=== PATIENT | female | born 1970 | race Caucasian/White ===

== ENCOUNTER 2017-02-03 10:53 | Inpatient (IN) ==
--- NOTE | 2017-02-03 11:30 | Emergency Department Note ---
Disposition Clinical Impression: Suicide ideation Disposition: Admitted As Inpatient Condition: Serious Referrals: Keon Graff MD [Partnered Physician] - Forms: ED Satisfaction Letter Time of Disposition: 15:06 Psych HPI - General Chief Complaint: ED Psychiatric Symptoms Stated Complaint: SI Time Seen by Provider: 02/03/17 11:18 Source: patient Nursing Notes Reviewed: Yes Vital Signs Reviewed: Yes - History of Present Illness HPI Narrative: 46-year-old female complains of suicidal ideation 1 day ago that is severe. Patient states in scale 1-55 and most likely she will attempt she states she is out of 5. Patient states she lost her son 2 years ago since then she has had severe depression. Patient has no coping mechanisms and has loss of energy severe guilt not sleeping well as well. - Related Data Allergies Allergy/AdvReac Type Severity Reaction Status Date / Time Amoxicillin [From Augmentin] Allergy Rash Verified 02/03/17 11:06 clavulanic acid Allergy Rash Verified 02/03/17 11:06 [From Augmentin] Influenza Virus Vaccines Allergy Anaphylaxis Verified 02/03/17 11:06 All systems ED: reviewed and negative except as stated. Review of Systems: As Per HPI Constitutional: Reports: chills. Denies: fever Eyes: Denies: vision change ENT ED: Denies: congestion Cardiovascular: Denies: chest pain, palpitations Respiratory: Denies: cough, dyspnea, wheezes Gastrointestinal: Denies: abdominal pain, nausea, vomiting, diarrhea Genitourinary: Denies: urgency, dysuria, frequency Musculoskeletal: Denies: back pain, neck pain Integumentary: Denies: rash, abrasion Neurological: Reports: headache (Migraines no change from normal) Psychiatric: Reports: anxiety (Severe anxiety), depression, suicidal thoughts Endocrine: Reports: fatigue Past Medical History - Past Medical History Attestation: Yes The following information was validated with the patient. 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: Reports: no PROCESS ENGINEERING INTERN history - Social History Smoking Status: Never smoker Smokeless Tobacco Status: No Alcohol use: Reports: none Drug use: Reports: none Physical Exam Vital Signs Temperature 97.7 F 02/03/17 11:01 Pulse Rate 115 02/03/17 11:01 Respiratory Rate 16 02/03/17 11:01 Blood Pressure 140/95 02/03/17 11:01 O2 Sat by Pulse Oximetry 99 02/03/17 11:01 Temperature 97.7 F 02/03/17 11:01 Pulse Rate 115 02/03/17 11:01 Respiratory Rate 16 02/03/17 11:01 Blood Pressure 140/95 02/03/17 11:01 O2 Sat by Pulse Oximetry 99 02/03/17 11:01 Oxygen Delivery Oxygen Delivery Room Air 46-year-old female who is alert and oriented 3 and in no acute distress. Patient looks nontoxic and well-appearing. Vital signs show patient's tachycardic at 1 15 bpm, and hypertensive 140/95 - General Limitations: no limitations General appearance: alert, in no apparent distress Course Vital Signs Temperature 97.7 F 02/03/17 11:01 Pulse Rate 115 02/03/17 11:01 Respiratory Rate 16 02/03/17 11:01 Blood Pressure 140/95 02/03/17 11:01 O2 Sat by Pulse Oximetry 99 02/03/17 11:01 Temperature 97.7 F 02/03/17 11:01 Pulse Rate 95 02/03/17 13:17 Respiratory Rate 20 02/03/17 13:17 Blood Pressure 130/89 02/03/17 13:17 O2 Sat by Pulse Oximetry 97 02/03/17 13:17 Oxygen Delivery Oxygen Delivery Room Air Psych - MDM Narrative Medical decision making narrative: Patient presents with suicide ideation and severe depression. Patient states skilled. Patient states she has a clear plan to take any medications and overdose at home. Patient's labs show no adamant about this and is medically cleared for evaluation by 1A. nurses made a call at 1255 hrs. Patient was evaluated by [facility]. awaiting decision. 1505 hrs.: Phone call from psychiatric services stated Dr. Aceves psychiatry has admitted in-patient evaluation. - Lab Data Lab results reviewed: Yes I reviewed the patient's lab results. Lab results narrative: Short CBC 02/03/17 Range/Units 11:39 WBC 7.5 (4.3-11.1) K/mcL Hgb 12.1 (11.5-15.4) g/dL Hct 36.4 (35.3-44.9) % Plt Count 313 (140-400) K/mcL Neutrophils # 4.9 (1.6-8.9) K/mcL BMP 02/03/17 Range/Units 11:39 Sodium 137 (136-145) mEq/L Potassium 3.7 (3.5-4.5) mEq/L Chloride 103 (98-109) mEq/L Carbon Dioxide 27 (19-29) mEq/L BUN 10 (7-20) mg/dL Creatinine 0.85 (0.57-1.11) mg/dL Glucose 91 (70-99) mg/dL Calcium 9.6 (8.6-10.8) mg/dL Liver Function 02/03/17 Range/Units 11:39 Total Bilirubin 0.3 (0.2-1.2) mg/dL Direct Bilirubin 0.1 (0.0-0.5) mg/dL AST 14 (5-34) Units/L ALT 12 (0-55) Units/L Alkaline Phosphatase 81 (38-126) Units/L Albumin 3.4 L (3.5-5.0) g/dL Urine 02/03/17 Range/Units 11:53 Urine Color Yellow (Yellow) Urine Clarity Clear (Clear) Urine pH 6.5 (5.0-8.0) pH Units Ur Specific [place] 1.010 (1.010-1.025) Urine Protein Negative (Neg-Trace) mg/dL Urine Glucose (UA) Normal (Normal) mg/dL Result diagrams: 02/03/17 11:39 02/03/17 11:39 Lab Results 02/03/17 02/03/17 02/03/17 Range/Units 11:01 11:01 11:39 WBC 7.5 (4.3-11.1) K/mcL RBC 4.12 (3.82-4.97) M/mcL Hgb 12.1 (11.5-15.4) g/dL Hct 36.4 (35.3-44.9) % MCV 88.3 (83.0-100.0) fL MCH 29.4 (28.0-33.3) pg MCHC 33.2 (31.6-35.5) g/dL RDW 13.6 (11.5-14.5) % Plt Count 313 (140-400) K/mcL MPV 8.6 L (9.4-12.4) fL Immature Gran % 0.1 (0-4) % Seg Neutrophils % 65.5 % Lymphocytes % 24.6 % Monocytes % 8.3 % Eosinophils % 1.1 % Basophils % 0.4 % Neutrophils # 4.9 (1.6-8.9) K/mcL Lymphocytes # 1.8 (0.6-4.6) K/mcL Monocytes # 0.6 (0.0-1.3) K/mcL Eosinophils # 0.1 (0.0-0.6) K/mcL Basophils # 0.0 (0.0-0.2) K/mcL Sodium (136-145) mEq/L Potassium (3.5-4.5) mEq/L Chloride (98-109) mEq/L Carbon Dioxide (19-29) mEq/L BUN (7-20) mg/dL Creatinine (0.57-1.11) mg/dL Est GFR ( Amer) (> 60) Est GFR (Non-Af Amer) (> 60) BUN/Creatinine Ratio (6-26) Glucose (70-99) mg/dL Calculated Osmolality (280-300) Calcium (8.6-10.8) mg/dL Total Bilirubin (0.2-1.2) mg/dL Direct Bilirubin (0.0-0.5) mg/dL Indirect Bilirubin (0.0-1.2) mg/dL AST (5-34) Units/L ALT (0-55) Units/L Alkaline Phosphatase (38-126) Units/L Serum Total Protein (6.0-8.3) g/dL Albumin (3.5-5.0) g/dL Globulin (2.4-3.5) g/dL Albumin/Globulin Ratio (1.1-2.2) TSH (0.350-4.840) mcIU/mL Urine Color (Yellow) Urine Clarity (Clear) Urine pH (5.0-8.0) pH Units Ur Specific [place] (1.010-1.025) Urine Protein (Neg-Trace) mg/dL Urine Glucose (UA) (Normal) mg/dL Urine Ketones (Negative) mg/dL Urine Blood (Negative) Urine Nitrite (Negative) Urine Bilirubin (Negative) Urine Urobilinogen (Normal) mg/dL Ur Leukocyte Esterase (Negative) Urine Microscopic RBC (0-3) per hpf Urine Microscopic WBC (0-3) per hpf Ur Squamous Epith Cells (None-Few) per lpf Urine Bacteria (None-Few) per hpf Hyaline Casts (None-Few) per lpf Urine Test Negative (Negative) Salicylates (15.0-30.0) mg/dL Urine Opiates Screen Negative (Evscfp=027) ng/mL Acetaminophen (10-30) mcg/mL Ur Barbiturates Screen Negative (Qfhsqe=723) ng/mL Ur Phencyclidine Scrn Negative (Cutoff=25) ng/mL Ur Amphetamines Screen Negative (Iiupmp=6966) ng/mL U Benzodiazepines Scrn Negative (Idbbyv=701) ng/mL Urine Cocaine Screen Negative (Cutoff= 300) ng/mL U Marijuana (THC) Screen Negative (Cutoff = 50) ng/mL Ethyl Alcohol (0-10) mg/dL 02/03/17 02/03/17 Range/Units 11:39 11:53 WBC (4.3-11.1) K/mcL RBC (3.82-4.97) M/mcL Hgb (11.5-15.4) g/dL Hct (35.3-44.9) % MCV (83.0-100.0) fL MCH (28.0-33.3) pg MCHC (31.6-35.5) g/dL RDW (11.5-14.5) % Plt Count (140-400) K/mcL MPV (9.4-12.4) fL Immature Gran % (0-4) % Seg Neutrophils % % Lymphocytes % % Monocytes % % Eosinophils % % Basophils % % Neutrophils # (1.6-8.9) K/mcL Lymphocytes # (0.6-4.6) K/mcL Monocytes # (0.0-1.3) K/mcL Eosinophils # (0.0-0.6) K/mcL Basophils # (0.0-0.2) K/mcL Sodium 137 (136-145) mEq/L Potassium 3.7 (3.5-4.5) mEq/L Chloride 103 (98-109) mEq/L Carbon Dioxide 27 (19-29) mEq/L BUN 10 (7-20) mg/dL Creatinine 0.85 (0.57-1.11) mg/dL Est GFR ( Amer) > 60 (> 60) Est GFR (Non-Af Amer) > 60 (> 60) BUN/Creatinine Ratio 12 (6-26) Glucose 91 (70-99) mg/dL Calculated Osmolality 283 (280-300) Calcium 9.6 (8.6-10.8) mg/dL Total Bilirubin 0.3 (0.2-1.2) mg/dL Direct Bilirubin 0.1 (0.0-0.5) mg/dL Indirect Bilirubin 0.2 (0.0-1.2) mg/dL AST 14 (5-34) Units/L ALT 12 (0-55) Units/L Alkaline Phosphatase 81 (38-126) Units/L Serum Total Protein 8.1 (6.0-8.3) g/dL Albumin 3.4 L (3.5-5.0) g/dL Globulin 4.7 H (2.4-3.5) g/dL Albumin/Globulin Ratio 0.7 L (1.1-2.2) TSH 0.912 (0.350-4.840) mcIU/mL Urine Color Yellow (Yellow) Urine Clarity Clear (Clear) Urine pH 6.5 (5.0-8.0) pH Units Ur Specific [place] 1.010 (1.010-1.025) Urine Protein Negative (Neg-Trace) mg/dL Urine Glucose (UA) Normal (Normal) mg/dL Urine Ketones Negative (Negative) mg/dL Urine Blood Negative (Negative) Urine Nitrite Negative (Negative) Urine Bilirubin Negative (Negative) Urine Urobilinogen Normal (Normal) mg/dL Ur Leukocyte Esterase Trace H (Negative) Urine Microscopic RBC 0-3 (0-3) per hpf Urine Microscopic WBC 3-5 H (0-3) per hpf Ur Squamous Epith Cells Many H (None-Few) per lpf Urine Bacteria Few (None-Few) per hpf Hyaline Casts None Seen (None-Few) per lpf Urine Test (Negative) Salicylates < 5.0 L (15.0-30.0) mg/dL Urine Opiates Screen (Jlfbvv=621) ng/mL Acetaminophen < 1.0 L (10-30) mcg/mL Ur Barbiturates Screen (Tlbwlz=932) ng/mL Ur Phencyclidine Scrn (Cutoff=25) ng/mL Ur Amphetamines Screen (Gnucrd=9156) ng/mL U Benzodiazepines Scrn (Exjvcb=368) ng/mL Urine Cocaine Screen (Cutoff= 300) ng/mL U Marijuana (THC) Screen (Cutoff = 50) ng/mL Ethyl Alcohol < 10 (0-10) mg/dL - EKG Data EKG attestation: Yes I reviewed and interpreted this EKG. EKG results narrative: EKG taken 02/03/2017 at [facility] 57 hours shows sinus rhythm at a rate of 98 bpm with no acute ST elevations or depressions [place] beats qrs widening or QT prolongation. No previous EKG for comparison Psychiatric Medical Clearance - Medical Clearance Checklist Does the patient have a NEW psychiatric condition?: No Any abnormalities indicating possible medical illness?: No Any history of medical issues?: No Medical History: No Social History Section defined Any abnormal vital signs prior to transfer?: No Current Vitals: Last Vital Signs Temp 97.7 F 02/03/17 11:01 Pulse 95 02/03/17 13:17 Resp 20 02/03/17 13:17 BP 130/89 02/03/17 13:17 Pulse Ox 97 02/03/17 13:17 Is the patient intoxicated or cognitively impaired?: No Psychiatric Lab Panel: Drug Levels and Toxicity 02/03/17 02/03/17 11:01 11:39 Urine Opiates Screen Negative Acetaminophen < 1.0 L Ur Barbiturates Screen Negative Ur Phencyclidine Scrn Negative Ur Amphetamines Screen Negative U Benzodiazepines Scrn Negative Urine Cocaine Screen Negative U Marijuana (THC) Screen Negative Ethyl Alcohol < 10 Any abnormalities on the physical exam?: No Any abnormal labs?: No Abnormal Labs: Abnormal lab results MPV 8.6 fL (9.4-12.4) L 02/03/17 11:39 Albumin 3.4 g/dL (3.5-5.0) L 02/03/17 11:39 Globulin 4.7 g/dL (2.4-3.5) H 02/03/17 11:39 Albumin/Globulin Ratio 0.7 (1.1-2.2) L 02/03/17 11:39 Ur Leukocyte Esterase Trace (Negative) H 02/03/17 11:53 Urine Microscopic WBC 3-5 per hpf (0-3) H 02/03/17 11:53 Ur Squamous Epith Cells Many per lpf (None-Few) H 02/03/17 11:53 Salicylates < 5.0 mg/dL (15.0-30.0) L 02/03/17 11:39 Acetaminophen < 1.0 mcg/mL (10-30) L 02/03/17 11:39 Does the patient require durable medical equiptment?: No Is the patient ambulatory?: No Is the patient a fall risk?: No Has the patient been medically cleared?: Yes Any acute medical condition require Tx prior to transfer?: No Statement of Medical Clearance: I have evaluated the patient, reviewed diagnostic information, and certify that the patient's medical condition is sufficiently stable that transfer to the psychiatric unit does not pose a significant risk of deterioration.
[2017-02-03 12:00] LABS: Bilirubin,Urine Negative (Negative); Blood,Urine Negative (Negative); Clarity,Urine Clear (Clear); Color,Urine Yellow (Yellow); Glucose,Urine (UA) Normal (Normal); Ketones,Urine Negative (Negative); Leukocyte Esterase,Urine Trace (Negative); Nitrite,Urine Negative (Negative); PH,Urine 6.5 pH Units (5.0-8.0); Protein,Urine Negative (Neg-Trace); Urobilinogen,Urine Normal (Normal)
[2017-02-03 12:02] LABS: Bacteria,Urine Few per hpf (None-Few); Hyaline Casts,Urine None Seen per lpf (None-Few); RBC,Urine 0-3 per hpf (0-3); Squamous Epithelial Cell,Urine Many per lpf (None-Few)
[2017-02-03 12:04] LABS: Amphetamine Screen,Urine Negative ng/mL (Cutoff=1000); Barbiturate Screen,Urine Negative ng/mL (Cutoff=200); Benzodiazepines Screen,Urine Negative ng/mL (Cutoff=200); Cannabinoid Screen,Urine Negative ng/mL (Cutoff = 50); Cocaine Screen,Urine Negative ng/mL (Cutoff= 300); Opiate Screen,Urine Negative ng/mL (Cutoff=300); Phencyclidine Screen,Urine Negative ng/mL (Cutoff=25)
[2017-02-03 12:11] LABS: Basophils % 0.4 %; Eosinophils # 0.1 K/mcL (0.0-0.6); Eosinophils % 1.1 %; Hematocrit 36.4 % (35.3-44.9); Hemoglobin 12.1 g/dL (11.5-15.4); Immature Granulocytes % 0.1 % (0-4); Lymphocytes # 1.8 K/mcL (0.6-4.6); Lymphocytes % 24.6 %; Mean Corpuscular HGB Conc 33.2 g/dL (31.6-35.5); Mean Corpuscular Hemoglobin 29.4 pg (28.0-33.3); Mean Corpuscular Volume 88.3 fL (83.0-100.0); Mean Platelet Volume 8.6 fL (9.4-12.4); Monocytes # 0.6 K/mcL (0.0-1.3); Monocytes % 8.3 %; Neutrophils # 4.9 K/mcL (1.6-8.9); Platelet Count 313 K/mcL (140-400); Red Blood Count 4.12 M/mcL (3.82-4.97); Red Cell Distribution Width 13.6 % (11.5-14.5); Segmented Neutrophils % 65.5 %
[2017-02-03 12:26] LABS: Alanine Aminotransferase 12 Units/L (0-55); Albumin 3.4 g/dL (3.5-5.0); Albumin/Globulin Ratio 0.7 (1.1-2.2); Alkaline Phosphatase 81 Units/L (38-126); Aspartate Amino Transferase 14 Units/L (5-34); BUN/Creatinine Ratio 12 (6-26); Bilirubin,Direct 0.1 mg/dL (0.0-0.5); Bilirubin,Indirect 0.2 mg/dL (0.0-1.2); Bilirubin,Total 0.3 mg/dL (0.2-1.2); Blood Urea Nitrogen 10 mg/dL (7-20); Calcium 9.6 mg/dL (8.6-10.8); Carbon Dioxide 27 mEq/L (19-29); Chloride 103 mEq/L (98-109); Globulin 4.7 g/dL (2.4-3.5); Glucose 91 mg/dL (70-99); Osmolality,Calculated 283 (280-300); Potassium 3.7 mEq/L (3.5-4.5); Sodium 137 mEq/L (136-145); Total Protein 8.1 g/dL (6.0-8.3); eGFR For African Americans > 60 (> 60); eGFR For Non-African Americans > 60 (> 60)
--- NOTE | 2017-02-03 12:33 | Emergency Department Note ---
START Narrative - START START: I examined this patient and my medical decision-making was reviewed with the INTEGRATED PEST MANAGEMENT TECHNICIAN/PA/Advanced Practice Nurse/Resident Physician. I agree with the documented findings, disposition and treatment plan as described except to the extent set forth below. ED attending note: Patient seen with emergency medicine resident Dr. Sonny Heard. We independently evaluated the patient. We independently had face-to- face contact with the patient. Please see a copy of his note for details of the history and physical, evaluation, management and disposition of this emergency Department patient. Briefly: A history of depression presents with suicidal ideation she was playing or takes or medications. Physical examination aside from tachycardia is otherwise benign. Lab work is nearly complete within normal limits waiting for ethanol level minimal contact mental health services for evaluation management disposition. Disposition pending
[2017-02-03 12:40] LABS: Acetaminophen < 1.0 mcg/mL (10-30); Ethanol < 10 mg/dL (0-10); Salicylate < 5.0 mg/dL (15.0-30.0)
[2017-02-03 13:23] LABS: Thyroid Stimulating Hormone 0.912 mcIU/mL (0.350-4.840)
[2017-02-03] MEDS ORDERED: MOM Conc 10 ML UD.LIQ PO PRN (17:00)
[2017-02-03] MEDS ORDERED: traZODone 50 MG TABLET PO PRN (17:00)
[2017-02-03] MEDS ORDERED: Haloperidol Lactate 5 MG/ML VIAL IM PRN (17:00)
[2017-02-03] MEDS ORDERED: Acetaminophen 325 MG TABLET PO PRN (17:00)
[2017-02-03] MEDS ORDERED: *HR* LORazepam 2 MG/ML VIAL IM PRN (17:00)
[2017-02-03] MEDS ORDERED: Mag Hydrox/Al Hydrox/Simeth 30 ML UDC PO PRN (17:00)
[2017-02-03] MEDS ORDERED: hydrOXYzine pamoate 25 MG CAPSULE PO PRN (17:00)
[2017-02-03] MEDS ORDERED: *HR* LORazepam 1 MG TABLET PO PRN (17:00)
[2017-02-03] MEDS: clonazePAM 0.5 MG TABLET PO SCH ×2 (17:51→20:54)
[2017-02-04] MEDS: clonazePAM 0.5 MG TABLET PO SCH (09:08)
[2017-02-04 09:17] VITALS: BP 110/82
--- NOTE | 2017-02-04 09:49 | Discharge Summary ---
Date of Encounter: 02/04/17 Time of Encounter: 09:46 Diagnosis - Discharge Diagnosis (1) Generalized anxiety disorder Status: Acute Medications - Discharge Medications clonazePAM [Klonopin] 0.5 mg PO TID tablet 02/04/17 [Rx] 3 Allergy/AdvReac Type Severity Reaction Status Date / Time Amoxicillin [From Augmentin] Allergy Rash Verified 02/03/17 11:06 clavulanic acid Allergy Rash Verified 02/03/17 11:06 [From Augmentin] Influenza Virus Vaccines Allergy Anaphylaxis Verified 02/03/17 11:06 Provider Date of admission: 02/03/17 15:11 Primary care physician: PCP NONE Discharging clinician: Juanis Bucio Assessment and Plan - Patient/Caregiver Discharge Instructions Activity: resume usual activities as tolerated Diet: regular diet - Follow up Plan Follow up with: NONE,PCP [Primary Care Provider] - Functional capacity at discharge: independent ambulation Overall status at discharge: Stable Disposition: Home, Self-Care Hospital Course Hospital course: Ms. Mcdonald is a 46 year old female who was admitted secondary to SI. According to client she started Effexor this week and dose was ramped up rapidly to 300mg. Takes Wellbutrin on top of it. Started feeling funny at work. Tried to get a hold of her PCP but doctor was unavailable and office advised her to go to the ER in case she was having an allergic reaction to medication. Likely just increased dose too quickly as Effexor and Wellbutrin together can be very activating. Ended up getting admitted to [facility] based on something she said in ER. Client adamantly denies she is at risk of harming herself. Admits she feels overwhelmed and hopeless at times but denies she would ever make an attempt on her life. Lost her son to leukemia this year and with the holidays approaching it is hard on her. However, she has a supportive and three supportive living children. Reports she would never leave her family. apparently told her he would sleep in his car in the parking lot here as he is worried about her being here. Wanted to take her home last night. 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 Reluctant to socialize or engage much with others on the unit for this reason. Feels this environment is not good for her. Very pleasant on exam. Has never been admitted before. Has never even seen a psychiatrist before. Goes through PCP's office for meds. Has been on Wellbutrin for 8 years and Effexor is brand new. Sees a counselor. Really likes her counselor but she is on maternity leave. Returns in February. Willing to see a psychiatrist if hospital makes linkage for her. Discussed how this would be the best option for medication management. Hospital will call her with a follow-up appointment on Monday. In meantime she is stopping the Effexor. Will continue with Wellbutrin for now. Discussed SSRIs as a good first line treatment for her anxiety and client intends to address this at her first appointment. Staff talked with who has no safety concerns. No guns in home. Adult daughters are both RNs. Strong support. - Time Spent with Patient Total time spent providing and/or coordinating discharge services: Quality - Multiple Antipsychotics Patient discharged on 2 or more antipsychotic medications: No Procedures - Procedures Procedures: Medication Management, Crisis Stabilization, Supportive Therapy, Group Therapy Mental Status Exam - Mental Status Exam Patient orientation: Yes Person, Yes Time, Yes Place Level of alertness: Alert Patient appearance: Appropriate, Well Groomed Behavior: calm, cooperative Psychomotor activity: Normal Eye contact: Maintains Eye Contact Mood description: Anxious Affect description: congruent with mood, full range Speech pattern: Normal rate, Normal rhythm, Normal tone Speech Volume: Normal Thought process: Linear, Goal Oriented Thought Content: No Suicidal ideation, No Homicidal ideation, No Overt delusions Perceptual Disturbances: No Reacting to internal stimuli, No Auditory hallucinations, No Visual hallucinations Judgment: Fair Insight: Partial
--- NOTE | 2017-02-06 09:53 | Electrocardiograph Report ---
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
== END 2017-02-04 11:05 | disposition home or self-care (01) | DRG 880 ==
LOC: EMEROO 10:53 → 1ANU 15:11
PROVIDERS: ADMIT Psychiatry & Neurology Forensic Psychiatry; ATTEND Psychiatry & Neurology Forensic Psychiatry